=== PATIENT | female | born 1980 | race Caucasian/White ===

== ENCOUNTER 2017-04-05 14:03 | Outpatient (CLI) | payer OTHER ==
--- NOTE | 2017-04-05 14:59 | RAD ---
CERVICAL SPINE FOUR VIEWS: History: Follow up from surgery. FINDINGS: Patient has undergone anterior cervical fusion with placement of plate and screws at the C5-6 level. Markers are within confines of the disc space. Disc narrowing was noted at C2-3. IMPRESSION: Post-operative changes of the spine. POS: [facility]
== END 2017-04-05 14:04 | disposition home or self-care (01) ==
LOC: TBSIIMAG 14:03
PROVIDERS: ATTEND Surgery
DX: M54.2 Cervicalgia (principal); Z98.1 Arthrodesis status
CPT/HCPCS: 72040

== ENCOUNTER 2017-04-29 21:59 | Emergency (ER) | payer OTHER ==
--- NOTE | 2017-04-30 09:36 | CT ---
PRELIMINARY REPORT/[facility]/EMERGENCY AFTER-HOURS PROCEDURE: EXAM: CT Head Without Intravenous Contrast EXAM DATE/TIME: 04/30/2017 1:25 AM CLINICAL HISTORY: 37 years old, female; Signs and symptoms; Visual disturbance; Patient HX: Patient reports that she n oticed her vision going blurry in left eye, looked in mirror and noticed pupil was dilated. TECHNIQUE: Axial computed tomography images of the head/brain without intravenous contrast. COMPARISON: No relevant prior studies available. FINDINGS: Brain: Unremarkable. No hemorrhage. No significant white matter disease. No edema. Ventricles: Unremarkable. No ventriculomegaly. Bones/joints: Unremarkable. No acute fracture. Soft tissues: Unremarkable. Sinuses: Unremarkable as visualized. No acute sinusitis. Mastoid air cells: Unremarkable as visualized. No mastoid effusion. IMPRESSION: No acute intracranial abnormality. Thank you for allowing us to participate in the care of your patient. Dictated and Authenticated by: Chriss Butterfield MD 04/30/2017 1:46 AM Central Time ([place] \[place]\ [place]) FINAL REPORT CT BRAIN WITHOUT CONTRAST: HISTORY: Blurry vision. Emergency exam. COMPARISON: None. FINDINGS/IMPRESSION: Findings and impression are concordant with the preliminary report. POS: [facility]
== END 2017-04-30 02:37 | disposition home or self-care (01) ==
LOC: ERS 21:59
DX: H57.02 Anisocoria (principal); E28.2 Polycystic ovarian syndrome; I10 Essential (primary) hypertension; G43.909 Migraine, unspecified, not intractable, without status migrainosus; F41.9 Anxiety disorder, unspecified; Z79.52 Long term (current) use of systemic steroids; Z79.899 Other long term (current) drug therapy
CPT/HCPCS: 70450

== ENCOUNTER 2019-10-15 14:16 | Outpatient (CLI) | payer BC ==
--- NOTE | 2019-10-15 15:48 | MRI ---
Exam: MRI cervical spine without contrast HISTORY: Cervical dystonia. Cervical disc displacement at C4-C5. History of cervical fusion.. COMPARISON: 12/14/2016 FINDINGS: Interval cervical fusion at C5-C6. Associated metallic susceptibly artifact. Stable straightening of cervical lordosis. Appropriate T1 marrow signal intensity of the cervical vertebra. Cervical spine vertebral body height is maintained. No fracture. No significant STIR hyperintensity to suggest verte bral body edema or ligamentous injury. Visualized brain parenchyma, cervicomedullary junction, cervical cord and the upper thoracic cord hav e a normal size and signal intensity. C2-C3: No significant central canal stenosis or significant neural foraminal narrowing. C3-C4: Central disc herniation. Mild central canal stenosis. Bilaterally, neural foramina are patent. C4-C5: No significant central canal stenosis or significant neural foraminal narrowing. C5-C6: Disc prosthesis. Associated metallic susceptibly artifact. No significant central canal stenos is or significant neural foraminal narrowing. C6-C7: No significant central canal stenosis or significant neural foraminal narrowing. C7-T1: Minimal right paracentral disc herniation, contacting the thecal sac. No significant central c anal stenosis or significant neural foraminal narrowing. IMPRESSION: 1. Interval C5-C6 fusion. 2. No significant central canal stenosis or significant neural foraminal narrowing throughout the cer vical spine. Transcribed Date/Time: 10/15/2019 5:45 PM
== END 2019-10-15 14:17 | disposition home or self-care (01) ==
LOC: SCSMRI 14:16
PROVIDERS: ATTEND Psychiatry & Neurology Neurology
DX: G24.3 Spasmodic torticollis (principal); M50.221 Other cervical disc displacement at C4-C5 level; Z98.1 Arthrodesis status
CPT/HCPCS: 72141

== ENCOUNTER 2020-06-11 16:22 | Inpatient (IN) | payer BC ==
[2020-06-11] MEDS ORDERED: Lorazepam 2 MG/ML VIAL ONE (16:46)
[2020-06-11] MEDS ORDERED: Morphine 4 MG/ML VIAL ONE ×2 (17:00→19:08)
--- NOTE | 2020-06-11 17:00 | RAD ---
EXAM: CHEST ONE VIEW HISTORY: Chest pain. COMPARISON: 02/16/2017 FINDINGS: Cardiac silhouette is magnified by projection but is stable in size. Mild increased interstitial dens ities are seen at each lung base which could be related to mild asymmetric pulmonary edema or infectious process. Calcified granuloma overlies the medial right midlung zone. No other interval tiara nge. IMPRESSION: Bibasilar interstitial densities which could be related to mild asymmetric pulmonary edema or infecti ous process.
[2020-06-11 17:18] LABS: #Basophils 0.1 thou/uL (0.0-0.2); #Eosinphils 0.1 thou/uL (0.0-0.7); #Lymphocytes 5.9 thou/uL (1.20-3.40); #Monocytes 0.6 thou/uL (0.11-0.59); #Neutrophils 7.9 thou/uL (1.40-6.50); %Basophils 0.9 % (0.0-1.0); %Eosinophils 0.4 % (0.0-10.0); %Lymphocytes 40.5 % (21.0-51.0); %Monocytes 4.3 % (0.0-10.0); %Neutrophils 53.8 % (42.0-75.0); ALT (SGPT) 32 U/L (8-55); AST (SGOT) 28 U/L (5-34); Albumin 4.3 g/dL (3.5-5.0); Alkaline Phosphatase 178 U/L (40-110); Anion Gap 19 mmol/L (10-20); BUN (Urea Nitrogen) 12 mg/dL (7.0-18.7); Bilirubin, Total 0.2 mg/dL (0.2-1.2); Calc. Creatinine Clearance 0 mL/min (70-130); Calcium 9.6 mg/dL (7.8-10.44); Carbon Dioxide 20 mmol/L (22-29); Chloride 101 mmol/L (98-107); Globulin 3.5 g/dL (2.4-3.5); Glucose 360 mg/dL (70-105); Hemoglobin 12.7 g/dL (12.0-16.0); Mean Corpuscular HGB CONC 32.2 g/dL (32.0-36.0); Mean Corpuscular Hemoglobin 27.7 pg (27.0-31.0); Platelet Count 484 thou/uL (130-400); Potassium 4.4 mmol/L (3.5-5.1); Protein, Total 7.8 g/dL (6.0-8.3); RBC Distribution Width 12.8 % (11.5-14.5); Red Blood Cell (RBC) Count 4.59 mill/uL (4.20-5.40); Sodium 136 mmol/L (136-145); White Blood Cell (WBC) Count 14.6 thou/uL (4.8-10.8)
[2020-06-11] MEDS ORDERED: Ketorolac Tromethamine 30 MG/ML VIAL ONE (17:51)
[2020-06-11 18:54] LABS: Pregnancy Test - Urine (BHCG) Negative (Negative)
[2020-06-11 18:55] LABS: Pregu Control Background? CLEAR/WHITE (CLR/WHITE); Pregu Control Bar Appear? YES (CONTROL BAR); Specific Gravity 1.043 (1.002-1.036)
[2020-06-11] MEDS ORDERED: Promethazine HCl 25 MG/ML VIAL ONE (21:55)
[2020-06-11 22:31] LABS: CKMB 7.3 ng/mL (0-6.6)
[2020-06-11] MEDS ORDERED: Enoxaparin Sodium 100 MG/ML SYRINGE ONE (22:40)
[2020-06-12] MEDS ORDERED: Ondansetron PF 4 MG/2 ML Vial ONE (00:01)
[2020-06-12] MEDS ORDERED: Promethazine HCl 25 MG/ML VIAL ONE ×3 (00:31→15:35)
[2020-06-12] MEDS ORDERED: Ondansetron ODT 4 MG TAB SL PRN (01:30)
[2020-06-12] MEDS ORDERED: Ondansetron PF 4 MG/2 ML Vial IVP PRN (01:30)
[2020-06-12] MEDS ORDERED: Morphine 2 MG/ML VIAL ONE ×4 (02:04→14:38)
[2020-06-12] MEDS ORDERED: Nitroglycerin 2% Ointment 1 INCH/1 GM Packet ONE (02:25)
[2020-06-12] MEDS: Nitroglycerin 2% Ointment 1 INCH/1 GM Packet TOP SCH ×3 (02:31→17:33)
[2020-06-12] MEDS: Morphine 2 MG/ML VIAL SLOW IVP PRN (05:22)
[2020-06-12 05:35] LABS: Troponin I 7.282 ng/mL (< 0.028)
[2020-06-12 06:23] LABS: SARS-CoV-2 MS2 Positive; SARS-CoV-2 N Gene Negative; SARS-CoV-2 S Gene Negative; SARS-CoV-2 by NAA Not Detected (NotDetected); SARS-CoV-2 orf1ab Negative
[2020-06-12] MEDS ORDERED: Morphine 4 MG/ML VIAL ONE (07:46)
[2020-06-12] MEDS ORDERED: Nitroglycerin 50 MG/250 ML BOT 250 ML ONE (08:10)
[2020-06-12] MEDS ORDERED: methylPREDNISolone Sod Succ/PF 125 MG/2 ML VIAL ONE (08:21)
[2020-06-12] MEDS ORDERED: diphenhydrAMINE 50 MG/ML VIAL ONE (08:21)
[2020-06-12] MEDS ORDERED: Lorazepam 2 MG/ML VIAL ONE (08:29)
[2020-06-12] MEDS ORDERED: Famotidine/PF 20 mg/2ml Vial ONE (08:39)
--- NOTE | 2020-06-12 09:11 | CON ---
DATE OF CONSULTATION: HISTORY OF PRESENT ILLNESS: The patient is a 40-year-old woman with no known history of heart disease, who presents for evaluation of chest discomfort. The patient reports several months ago, she developed midsternal chest discomfort. She went to the [facility] Emergency Room. She was admitted to the hospital. She underwent an apparent CT coronary angiography, which apparently revealed no significant coronary artery disease. The patient states she was doing well until yesterday when she developed recurrent midsternal chest discomfort. The discomfort radiated down into both her arms. The discomfort resolved. The patient states the chest pain resolved until this morning when she developed recurrent pain. PAST MEDICAL HISTORY: 1. Cervical dystonia. 2. Multiple allergies. 3. Anxiety disorder. PAST SURGICAL HISTORY: Hysterectomy and appendectomy. SOCIAL HISTORY: Nonsmoker. ALLERGIES: AMITRIPTYLINE, SHELLFISH,CODEINE, TRAMADOL, TAMIFLU, ELAVIL, STATIN THERAPY. PHYSICAL EXAMINATION: GENERAL: This is an obese woman, in acute distress with a blood pressure of 150/70. NECK: Showed no jugular venous distention. LUNGS: Clear to auscultation. HEART: Regular rate and rhythm. Normal S1, S2. ABDOMEN: Distended. EXTREMITIES: Showed no edema. VASCULAR: Radial pulses 2+. LABORATORY DATA: Sodium 136, potassium 4.4, chloride 101, bicarbonate 20, BUN 12, creatinine 0.85, glucose is 360. Her troponin was 7.8. BNP is less than 10. White blood cell count 14.6, hemoglobin 12.7, hematocrit 39.5, and platelets are 484. IMAGING STUDIES: EKG normal sinus rhythm with Q-waves suggestive of previous inferior infarct. IMPRESSION AND PLAN: Myocardial infarction. This patient has suffered a non-Q-wave myocardial infarction. She continues to have chest discomfort. The patient has a severe iodine allergy. She will be emergently medicated. I have recommended proceeding with cardiac catheterization. The risks involved in the procedure including UT, bleeding, stroke, cardiac arrhythmia, and cardiac have been explained to the patient. The patient understands these risks and wished to proceed. TIME SPENT: 1 hour and 30 minutes. Job ID: [id number] MTDD
[2020-06-12] MEDS ORDERED: Lorazepam 2 MG/ML VIAL SLOW IVP SCH (09:30)
[2020-06-12] MEDS ORDERED: Famotidine/PF 20 mg/2ml Vial SLOW IVP SCH (09:30)
[2020-06-12] MEDS ORDERED: diphenhydrAMINE 50 MG/ML VIAL IVP SCH ×2 (09:30→14:00)
[2020-06-12] MEDS ORDERED: methylPREDNISolone Sod Succ/PF 125 MG/2 ML VIAL IVP SCH ×2 (09:30→14:00)
[2020-06-12] MEDS ORDERED: Nitroglycerin 50 MG/250 ML BOT 250 ML IVPB SCH (09:30)
[2020-06-12 10:56] VITALS: BMI 40.7
[2020-06-12] MEDS: Metoprolol Tartrate 25 MG TAB PO SCH ×2 (11:06→21:13)
[2020-06-12] MEDS: Aspirin 81 mg Enteric Coated Tablet PO SCH (11:35)
[2020-06-12] MEDS: Morphine 4 MG/ML VIAL SLOW IVP PRN ×4 (11:55→21:45)
[2020-06-12] MEDS ORDERED: Iopamidol 370 76% 100 ML VIAL ONE (13:34)
[2020-06-12] MEDS ORDERED: Iopamidol 370 76% 50 ML VIAL FS ONE (13:34)
[2020-06-12] MEDS ORDERED: Heparin 10,000 UNITS/ 10 ML VIAL ONE (15:16)
[2020-06-12] MEDS ORDERED: Aggrastat 12.5 MG/250 ML 250 ML ONE (15:42)
--- NOTE | 2020-06-12 15:49 | PDOC.HHP ---
Hospitalist HPI - History of Present Illness CHEST PAIN History of Present Illness: The patient is a 40-year-old female with past medical history of anxiety and cervical dystonia presented to the hospital with complains of chest pain. Patient stated that her symptoms started yesterday with left-sided upper back pain that subsided spontaneously. Subsequently, she experienced central chest pain radiating to both her shoulders and neck which prompted her to present to the ER. In the ED the initial troponin was negative, however, subsequent troponins were elevated. Hospitalist ROS - Review of Systems All other systems reviewed; all pertinent +/- noted in HPI/Subj - Medication Medications: Active Medications Generic Name Dose Route Start Last Admin Trade Name Freq PRN Reason Stop Dose Admin Aspirin 81 mg 06/12/20 09:00 06/12/20 11:35 Aspirin 81 Mg Enteric Coated Tablet PO 81 mg DAILY DOROTHY Administration Diphenhydramine HCl 25 mg 06/12/20 14:00 06/12/20 13:37 Diphenhydramine 50 Mg/Ml Vial IVP 06/12/20 16:00 25 mg 1400 DOROTHY Administration Methylprednisolone Sodium Succinate 125 mg 06/12/20 14:00 06/12/20 13:37 Methylprednisolone Sod Succ/Pf 125 Mg/2 Ml Vial IVP 06/12/20 16:00 125 mg 1400 DOROTHY Administration Metoprolol Tartrate 25 mg 06/12/20 09:00 06/12/20 11:06 Metoprolol Tartrate 25 Mg Tab PO Not Given BID DOROTHY Morphine Sulfate 2 mg 06/12/20 01:17 06/12/20 05:22 Morphine 2 Mg/Ml Vial SLOW IVP 2 mg Q2H PRN Administration Pain Morphine Sulfate 4 mg 06/12/20 07:07 06/12/20 11:55 Morphine 4 Mg/Ml Vial SLOW IVP 4 mg Q3H PRN Administration Moderate to Severe Pain (6-10) Nitroglycerin 1 inch 06/12/20 03:00 06/12/20 11:10 Nitroglycerin 2% Ointment 1 Inch/1 Gm Packet TOP Not Given 0300,0900,1500,2100 DOROTHY Sodium Chloride 10 ml 06/12/20 09:00 06/12/20 11:14 Flush - Normal Saline 10 Ml Syringe IVF 10 ml Q12HR DOROTHY Administration Hospitalist History - Past Medical History Cardiac: reports: HTN ARTIST SCIENTIFIC: reports: Migraine Other Medical History: Cervical dystonia - Past Surgical History Past Surgical History: reports: Appendectomy - Family History Family History: reports: no pertinent history - Social History Smoking Status: Never smoker Alcohol: reports: None Drugs: reports: none - Exam General Appearance: awake alert ENT: normocephalic atraumatic Neck: supple, no JVD Heart: RRR Respiratory: normal chest expansion, no tachypnea Gastrointestinal: soft Extremities: no cyanosis, no clubbing Neurological: cranial nerve grossly intact Hospitalist Results - Labs Result Diagrams: 06/11/20 16:51 06/11/20 16:51 Lab results: WBC 14.6 thou/uL (4.8-10.8) H 06/11/20 16:51 Hgb 12.7 g/dL (12.0-16.0) 06/11/20 16:51 Hct 39.5 % (36.0-47.0) 06/11/20 16:51 MCV 86.0 fL (78.0-98.0) 06/11/20 16:51 Plt Count 484 thou/uL (130-400) H 06/11/20 16:51 Neutrophils % 53.8 % (42.0-75.0) 06/11/20 16:51 Sodium 136 mmol/L (136-145) 06/11/20 16:51 Potassium 4.4 mmol/L (3.5-5.1) 06/11/20 16:51 Chloride 101 mmol/L (98-107) 06/11/20 16:51 Carbon Dioxide 20 mmol/L (22-29) L 06/11/20 16:51 BUN 12 mg/dL (7.0-18.7) 06/11/20 16:51 Creatinine 0.85 mg/dL (0.6-1.1) 06/11/20 16:51 Glucose 360 mg/dL (70-105) H 06/11/20 16:51 Calcium 9.6 mg/dL (7.8-10.44) 06/11/20 16:51 Total Bilirubin 0.2 mg/dL (0.2-1.2) 06/11/20 16:51 AST 28 U/L (5-34) 06/11/20 16:51 ALT 32 U/L (8-55) 06/11/20 16:51 Alkaline Phosphatase 178 U/L (40-110) H 06/11/20 16:51 CK-MB (CK-2) 7.3 ng/mL (0-6.6) H* 06/11/20 21:31 Troponin I 7.282 ng/mL (< 0.028) H* 06/12/20 04:48 B-Natriuretic Peptide Less than 10.0 pg/mL (0-100) 06/11/20 16:51 Serum Total Protein 7.8 g/dL (6.0-8.3) 06/11/20 16:51 Albumin 4.3 g/dL (3.5-5.0) 06/11/20 16:51 Hospitalist H&P A/P - Problem (1) NSTEMI (non-ST elevated myocardial infarction) Code(s): I21.4 - NON-ST ELEVATION (NSTEMI) MYOCARDIAL INFARCTION Status: Acute (2) Anxiety Code(s): F41.9 - ANXIETY DISORDER, UNSPECIFIED Status: Acute (3) HTN (hypertension) Code(s): I10 - ESSENTIAL (PRIMARY) HYPERTENSION Status: Acute - Plan Plan: The patient will be admitted to the hospital. Start aspirin, atorvastatin, metoprolol, morphine, and nitroglycerin. Trend troponins. Check echocardiogram. Cardiology service consulted. Heart score of 5 correlating with risk of an VAUGHN of 12 to 16%.
[2020-06-12] MEDS ORDERED: TICAGRELOR 90 MG TABLET ONE (15:59)
[2020-06-12] MEDS ORDERED: Aggrastat 12.5 MG/250 ML 250 ML IVPB SCH (16:15)
[2020-06-12] MEDS ORDERED: Sodium Chloride 0.9% 1,000 ML IV SCH (16:15)
--- NOTE | 2020-06-12 16:17 | EKG ---
Test Reason : Blood Pressure : / mmHG Vent. Rate : 091 BPM Atrial Rate : 091 BPM P-R Int : 190 ms QRS Dur : 106 ms QT Int : 396 ms P-R-T Axes : 048 013 072 degrees QTc Int : 487 ms Normal sinus rhythm Inferior-posterior infarct (cited on or before 11-JUN-2020) Abnormal ECG When compared with ECG of 12-JUN-2020 05:43, (Unconfirmed) No significant change was found Confirmed by DR. Carla PARSON ([id number]) on 06/12/2020 4:16:54 PM Referred By: NATY Burdick Confirmed By:DR. Carla PARSON
[2020-06-12] MEDS: TICAGRELOR 90 MG TABLET PO SCH (21:12)
[2020-06-12 21:29] LABS: Troponin I 99.389 ng/mL (< 0.028)
[2020-06-12] MEDS: Promethazine HCl 25 MG/ML VIAL SLOW IVP PRN (23:07)
[2020-06-13 04:39] LABS: #Lymphocytes 3.9 thou/uL (1.20-3.40); #Monocytes 1.2 thou/uL (0.11-0.59); #Neutrophils 10.4 thou/uL (1.40-6.50); %Basophils 0.2 % (0.0-1.0); %Eosinophils 0.2 % (0.0-10.0); %Lymphocytes 25.1 % (21.0-51.0); %Monocytes 7.8 % (0.0-10.0); %Neutrophils 66.6 % (42.0-75.0); Hemoglobin 11.3 g/dL (12.0-16.0); Mean Corpuscular HGB CONC 32.8 g/dL (32.0-36.0); Mean Corpuscular Volume 85.3 fL (78.0-98.0); Mean Platelet Volume 6.6 fL (7.4-10.4); Platelet Count 381 thou/uL (130-400); RBC Distribution Width 12.9 % (11.5-14.5); Red Blood Cell (RBC) Count 4.03 mill/uL (4.20-5.40); White Blood Cell (WBC) Count 15.7 thou/uL (4.8-10.8)
[2020-06-13 04:41] LABS: ALT (SGPT) 43 U/L (8-55); AST (SGOT) 170 U/L (5-34); Albumin 3.5 g/dL (3.5-5.0); Alkaline Phosphatase 134 U/L (40-110); Anion Gap 16 mmol/L (10-20); BUN (Urea Nitrogen) 6 mg/dL (7.0-18.7); Bilirubin, Total 0.3 mg/dL (0.2-1.2); Calc. Creatinine Clearance 184 mL/min (70-130); Carbon Dioxide 21 mmol/L (22-29); Cardiac Risk 7.2 (Less than 4.5); Chloride 101 mmol/L (98-107); Cholesterol 279 mg/dl (< 200 Desired); Globulin 3.3 g/dL (2.4-3.5); Glucose 188 mg/dL (70-105); HDL Cholesterol 39 mg/dL (>60 Neg Risk); LDL Cholesterol, Calculated 179 mg/dL; Potassium 3.9 mmol/L (3.5-5.1); Protein, Total 6.8 g/dL (6.0-8.3); Sodium 134 mmol/L (136-145); Triglycerides 305 mg/dL (Less than 150)
[2020-06-13] MEDS: Morphine 4 MG/ML VIAL SLOW IVP PRN ×2 (05:04→09:35)
[2020-06-13] MEDS: Metoprolol Tartrate 25 MG TAB PO SCH ×3 (08:13→21:42)
[2020-06-13] MEDS: Aspirin 81 mg Enteric Coated Tablet PO SCH (08:16)
[2020-06-13] MEDS: TICAGRELOR 90 MG TABLET PO SCH ×2 (08:17→21:41)
[2020-06-13] MEDS: Promethazine HCl 25 MG/ML VIAL SLOW IVP PRN (08:43)
[2020-06-13] MEDS ORDERED: FLU VACC QS2020-21(6MOS UP)/PF 60 MCG/0.5 ML SYRINGE IM ONE (11:15)
[2020-06-13] MEDS: Morphine 2 MG/ML VIAL SLOW IVP PRN ×4 (12:25→23:41)
[2020-06-13] MEDS ORDERED: diphenhydrAMINE 50 MG/ML VIAL IVP SCH (12:30)
[2020-06-13] MEDS ORDERED: Promethazine 25 MG TAB PO PRN (19:43)
[2020-06-13] MEDS ORDERED: diphenhydrAMINE 12.5 MG/5 ML UDCUP PO PRN (19:43)
--- NOTE | 2020-06-13 19:45 | PDOC.HOSPP ---
- Subjective Encounter Date: 06/13/20 Encounter Time: 14:30 Subjective: Patient seen and examined for non-ST elevation RI. Denies any chest pain, palpitations or syncope. Nauseous - no vomiting. No fever or chills - Objective Vital Signs & Weight: Vital Signs (12 hours) Temp Pulse Pulse BP BP Pulse Ox Pulse Ox 06/13/20 19:00 98.8 F 06/13/20 17:00 98.7 F 06/13/20 12:58 102 H 100 122/82 113/84 97 06/13/20 12:00 98.1 F 06/13/20 08:00 98.5 F 93 L Pulse Ox 06/13/20 19:00 06/13/20 17:00 06/13/20 12:58 99 06/13/20 12:00 06/13/20 08:00 Weight Weight 222 lb 10.67 oz Most Recent Monitor Data Heart Rate from ECG 118 NIBP 154/100 NIBP BP-Mean 118 Respiration from ECG 19 SpO2 100 I&O: 06/12/20 06/13/20 06/14/20 06:59 06:59 06:59 Intake Total 1237.7 916 Output Total 1550 576 Balance -312.3 340 Result Diagrams: 06/13/20 03:27 06/13/20 03:27 EKG Reviewed by me: Yes (Sinus rhythm on telemetry) Hospitalist ROS - Review of Systems Respiratory: denies: cough, dry, shortness of breath, hemoptysis, SOB with excertion, pleuritic pain, sputum, wheezing, other Cardiovascular: denies: chest pain, palpitations, orthopnea, paroxysmal noc. dyspnea, edema, light headedness, other - Medication Medications: Active Medications Generic Name Dose Route Start Last Admin Trade Name Freq PRN Reason Stop Dose Admin Aspirin 81 mg 06/12/20 09:00 06/13/20 08:16 Aspirin 81 Mg Enteric Coated Tablet PO 81 mg DAILY DOROTHY Administration Metoprolol Tartrate 25 mg 06/12/20 09:00 06/13/20 09:50 Metoprolol Tartrate 25 Mg Tab PO 25 mg BID DOROTHY Administration Morphine Sulfate 2 mg 06/12/20 01:17 06/13/20 16:27 Morphine 2 Mg/Ml Vial SLOW IVP 2 mg Q2H PRN Administration Pain Sodium Chloride 10 ml 06/12/20 09:00 12/05/20 08:18 Flush - Normal Saline 10 Ml Syringe IVF 10 ml Q12HR DOROTHY Administration Ticagrelor 90 mg 06/12/20 21:00 06/13/20 08:17 Ticagrelor 90 Mg Tablet PO 90 mg BID DOROTHY Administration - Exam General - other findings: patient in distress due to pain Heart: RRR, no gallops Respiratory: no wheezes, no ronchi Gastrointestinal: soft, non-distended, no guarding, no rigidity, tender to palpation ( in right lower quadrant) Extremities: no cyanosis, no clubbing Neurological: no new deficit Psychiatric: A&O x 3 Hosp A/P - Plan DVT proph w/SCDs Non-ST elevation RI Coronary artery disease status post stent placement in the first obtuse marginal this admission Morbid obesity with a BMI of 40.7 Anxiety Hypertension Chronic pain syndrome History of migraines Plan: Continue dual antiplatelet therapy. Continue beta-blockers. Patient is allergic to statins. Morphine as needed for chest pain. Patient is currently on Phenergan as needed for nausea. She states that Zofran does not work for nausea. IV fluids discontinued. Resume home medications including Soma and prednisone. A.m. labs.
[2020-06-13] MEDS ORDERED: Fioricet 325/50/40 mg Tablet PO PRN (19:49)
[2020-06-13] MEDS ORDERED: Non-Formulary Item 1 EACH (Lansoprazole [Prevacid] 15 MG Cap) PO SCH (21:00)
[2020-06-13] MEDS ORDERED: Acetaminophen 500 MG TAB PO SCH (21:45)
[2020-06-13] MEDS ORDERED: ALPRAZolam 0.25 MG TAB PO SCH (22:00)
[2020-06-14 04:18] LABS: #Basophils 0.1 thou/uL (0.0-0.2); #Eosinphils 0.1 thou/uL (0.0-0.7); #Lymphocytes 5.4 thou/uL (1.20-3.40); #Neutrophils 6.3 thou/uL (1.40-6.50); %Basophils 0.6 % (0.0-1.0); %Eosinophils 0.6 % (0.0-10.0); %Lymphocytes 41.9 % (21.0-51.0); %Monocytes 7.5 % (0.0-10.0); %Neutrophils 49.3 % (42.0-75.0); Hemoglobin 11.6 g/dL (12.0-16.0); Mean Corpuscular HGB CONC 32.3 g/dL (32.0-36.0); Mean Corpuscular Hemoglobin 27.7 pg (27.0-31.0); Mean Corpuscular Volume 85.7 fL (78.0-98.0); Mean Platelet Volume 6.5 fL (7.4-10.4); Platelet Count 388 thou/uL (130-400); RBC Distribution Width 13.1 % (11.5-14.5); Red Blood Cell (RBC) Count 4.21 mill/uL (4.20-5.40); White Blood Cell (WBC) Count 12.8 thou/uL (4.8-10.8)
[2020-06-14 04:52] LABS: Anion Gap 15 mmol/L (10-20); BUN (Urea Nitrogen) 9 mg/dL (7.0-18.7); Calc. Creatinine Clearance 174 mL/min (70-130); Calcium 8.5 mg/dL (7.8-10.44); Carbon Dioxide 23 mmol/L (22-29); Chloride 102 mmol/L (98-107); Glucose 176 mg/dL (70-105); Magnesium 1.8 mg/dL (1.6-2.6); Phosphorus 3.8 mg/dL (2.3-4.7); Potassium 3.2 mmol/L (3.5-5.1); Sodium 137 mmol/L (136-145)
[2020-06-14] MEDS: Acetaminophen 325 MG TAB PO PRN ×2 (05:13→10:36)
[2020-06-14] MEDS: diphenhydrAMINE 25 MG CAP PO PRN (05:14)
[2020-06-14] MEDS: Cholecalciferol 1,000 UNITS (25 MCG) TAB PO SCH (08:56)
[2020-06-14] MEDS: Metoprolol Tartrate 25 MG TAB PO SCH (08:57)
[2020-06-14] MEDS: Aspirin 81 mg Enteric Coated Tablet PO SCH (08:57)
[2020-06-14] MEDS: ALPRAZolam 0.25 MG TAB PO SCH ×2 (08:57→22:55)
[2020-06-14] MEDS: TICAGRELOR 90 MG TABLET PO SCH ×2 (08:58→20:24)
[2020-06-14] MEDS ORDERED: Magnesium Sulfate 2 GM in Sodium Chloride 0.9% 100 ML IVPB SCH (09:15)
[2020-06-14] MEDS ORDERED: Magnesium 2 GM/50 ML 2 GM in Premix Bag 1 BAG IVPB SCH (09:15)
[2020-06-14] MEDS ORDERED: Potassium Chloride 20 MEQ TAB PO SCH (09:15)
[2020-06-14] MEDS: predniSONE 1 MG TAB PO SCH (10:48)
[2020-06-14 11:25] VITALS: BP 151/91
[2020-06-14] MEDS ORDERED: Icosapent Ethyl 1 GM CAPSULE PO SCH (12:15)
[2020-06-14] MEDS: Icosapent Ethyl 1 GM CAPSULE PO SCH ×3 (12:53→20:27)
[2020-06-14] MEDS: Carisoprodol 350 MG Tablet PO PRN ×2 (14:58→20:26)
[2020-06-14] MEDS: BUTALBITAL ACETAMINOPHEN PO PRN ×2 (14:59→20:25)
[2020-06-14 18:27] VITALS: TEMP 98.1
[2020-06-14] MEDS: Potassium Chloride 20 MEQ TAB PO SCH (18:32)
--- NOTE | 2020-06-14 19:31 | PDOC.HOSPP ---
- Subjective Encounter Date: 06/14/20 Encounter Time: 09:45 Subjective: Patient seen and examined for non-ST elevation FL. Denies new chest pain. No nausea or vomiting. No palpitations or syncope reported. - Objective Vital Signs & Weight: Vital Signs (12 hours) Temp Pulse Pulse BP BP Pulse Ox Pulse Ox 06/14/20 16:00 98.1 F 06/14/20 13:00 97.9 F 06/14/20 10:26 115 H 107 H 151/91 H 125/80 97 06/14/20 08:00 97.7 F 98 06/14/20 07:47 96 Pulse Ox 06/14/20 16:00 06/14/20 13:00 06/14/20 10:26 97 06/14/20 08:00 06/14/20 07:47 Weight Weight 222 lb 10.67 oz Most Recent Monitor Data Heart Rate from ECG 114 NIBP 109/81 NIBP BP-Mean 90 Respiration from ECG 15 SpO2 96 I&O: 06/13/20 06/14/20 06/15/20 06:59 06:59 06:59 Intake Total 1237.7 1473 1010 Output Total 1550 576 851 Balance -312.3 897 159 Result Diagrams: 06/14/20 03:46 06/14/20 03:46 Additional Labs: Abnormal Lab Results - Last 48 hrs 06/12/20 20:27: Troponin I 99.389 H* 06/13/20 03:27: Sodium 134 L, Carbon Dioxide 21 L, BUN 6 L, AST 170 H, Alkaline Phosphatase 134 H, Albumin/Globulin Ratio 1.1 L, Triglycerides 305 H, Cholesterol 279 H 06/13/20 03:27: WBC 15.7 H, RBC 4.03 L, Hgb 11.3 L, Hct 34.4 L, MPV 6.6 L, Neutrophils # 10.4 H, Lymphocytes # 3.9 H, Monocytes # 1.2 H 06/14/20 03:46: Potassium 3.2 L 06/14/20 03:46: WBC 12.8 H, Hgb 11.6 L, MPV 6.5 L, Lymphocytes # 5.4 H, Monocytes # 1.0 H EKG Reviewed by me: Yes (Sinus rhythm on telemetry) Hospitalist ROS - Review of Systems Respiratory: denies: cough, dry, shortness of breath, hemoptysis, SOB with excertion, pleuritic pain, sputum, wheezing, other Cardiovascular: denies: chest pain, palpitations, orthopnea, paroxysmal noc. dyspnea, edema, light headedness, other - Medication Medications: Active Medications Generic Name Dose Route Start Last Admin Trade Name Freq PRN Reason Stop Dose Admin Acetaminophen 650 mg 06/13/20 21:09 06/14/20 10:36 Acetaminophen 325 Mg Tab PO 650 mg Q4H PRN Administration Headache/Fever or Pain Alprazolam 0.25 mg 06/14/20 09:00 06/14/20 08:57 Alprazolam 0.25 Mg Tab PO 0.25 mg BID DOROTHY Administration Aspirin 81 mg 06/12/20 09:00 06/14/20 08:57 Aspirin 81 Mg Enteric Coated Tablet PO 81 mg DAILY DOROTHY Administration Cholecalciferol 4,000 units 06/14/20 09:00 06/14/20 08:56 Cholecalciferol 1,000 Units (25 Mcg) Tab PO 4,000 units DAILY DOROTHY Administration Diphenhydramine HCl 25 mg 06/13/20 19:42 06/14/20 05:14 Diphenhydramine 25 Mg Cap PO 25 mg Q6H PRN Administration Itching Miscellaneous Medication 2 gm 06/13/20 21:00 06/14/20 12:53 Icosapent Ethyl 1 Gm Capsule PO Not Given BID [facility] Morphine Sulfate 2 mg 06/12/20 01:17 06/13/20 23:41 Morphine 2 Mg/Ml Vial SLOW IVP 2 mg Q2H PRN Administration Pain Pantoprazole Sodium 40 mg 06/14/20 09:00 06/14/20 08:57 Pantoprazole 40 Mg Tab PO 40 mg DAILY DOROTHY Administration Carisoprodol 350 Mg 1 each 06/14/20 14:44 06/14/20 14:58 Tablet PO 1 each BID PRN Administration Pain Butalbital- 1 each 06/14/20 14:50 06/14/20 14:59 Acetaminophen 50/325 PO 1 each Mg DAILY PRN Administration .HEADACHE Potassium Chloride 20 meq 06/14/20 17:00 06/14/20 18:32 Potassium Chloride 20 Meq Tab PO 06/15/20 08:01 20 meq BID-WM DOROTHY Administration Prednisone 6 mg 06/14/20 09:00 06/14/20 10:48 Prednisone 1 Mg Tab PO 6 mg DAILY DOROTHY Administration Promethazine HCl 25 mg 06/13/20 19:43 06/13/20 21:42 Promethazine 25 Mg Tab PO 25 mg Q4H PRN Administration Nausea Sodium Chloride 10 ml 06/12/20 09:00 06/14/20 08:58 Flush - Normal Saline 10 Ml Syringe IVF 10 ml Q12HR DOROTHY Administration Ticagrelor 90 mg 06/12/20 21:00 06/14/20 08:58 Ticagrelor 90 Mg Tablet PO 90 mg BID DOROTHY Administration - Exam General Appearance: NAD Neck: supple, no JVD Heart: RRR, no gallops Respiratory: no wheezes, no ronchi Gastrointestinal: soft, normal bowel sounds Extremities: no cyanosis Neurological: no new deficit Hosp A/P - Plan DVT proph w/SCDs Non-ST elevation FL Coronary artery disease S/p stent placement in the first obtuse marginal this admission Morbid obesity with a BMI of 40.7 Anxiety Hypokalemia/hypomagnesemia Hypertension Chronic pain syndrome History of migraines Statin allergy Plan: Replace potassium and magnesium. Continue aspirin with Brilinta. Recheck labs in a.m. Metoprolol tartrate changed to Toprol-XL. Continue PPIs. Continue Vascepa. Continue other chronic home medications. Transfer to telemetry
[2020-06-15] MEDS: diphenhydrAMINE 25 MG CAP PO PRN (02:55)
[2020-06-15 04:08] LABS: #Basophils 0.1 thou/uL (0.0-0.2); #Eosinphils 0.1 thou/uL (0.0-0.7); #Lymphocytes 5.9 thou/uL (1.20-3.40); #Monocytes 0.9 thou/uL (0.11-0.59); #Neutrophils 6.8 thou/uL (1.40-6.50); %Basophils 0.6 % (0.0-1.0); %Eosinophils 0.8 % (0.0-10.0); %Lymphocytes 42.5 % (21.0-51.0); %Monocytes 6.6 % (0.0-10.0); %Neutrophils 49.5 % (42.0-75.0); Hemoglobin 10.6 g/dL (12.0-16.0); Mean Corpuscular HGB CONC 33.2 g/dL (32.0-36.0); Mean Corpuscular Hemoglobin 28.4 pg (27.0-31.0); Mean Corpuscular Volume 85.5 fL (78.0-98.0); Mean Platelet Volume 6.7 fL (7.4-10.4); Platelet Count 378 thou/uL (130-400); Red Blood Cell (RBC) Count 3.75 mill/uL (4.20-5.40); White Blood Cell (WBC) Count 13.8 thou/uL (4.8-10.8)
[2020-06-15 04:30] LABS: Anion Gap 14 mmol/L (10-20); BUN (Urea Nitrogen) 9 mg/dL (7.0-18.7); Calc. Creatinine Clearance 166 mL/min (70-130); Calcium 8.7 mg/dL (7.8-10.44); Carbon Dioxide 22 mmol/L (22-29); Chloride 103 mmol/L (98-107); Glucose 182 mg/dL (70-105); Magnesium 1.9 mg/dL (1.6-2.6); Potassium 3.4 mmol/L (3.5-5.1); Sodium 136 mmol/L (136-145)
[2020-06-15] MEDS ORDERED: Potassium Chloride 20 MEQ TAB PO SCH (08:00)
[2020-06-15] MEDS: Potassium Chloride 20 MEQ TAB PO SCH (08:47)
[2020-06-15] MEDS: Aspirin 81 mg Enteric Coated Tablet PO SCH (08:48)
[2020-06-15] MEDS: Cholecalciferol 1,000 UNITS (25 MCG) TAB PO SCH (08:49)
[2020-06-15] MEDS: ALPRAZolam 0.25 MG TAB PO SCH (08:49)
[2020-06-15] MEDS: TICAGRELOR 90 MG TABLET PO SCH (08:52)
[2020-06-15] MEDS: predniSONE 1 MG TAB PO SCH (08:52)
[2020-06-15] MEDS: Icosapent Ethyl 1 GM CAPSULE PO SCH (08:55)
[2020-06-15] MEDS ORDERED: Magnesium 2 GM/50 ML 2 GM in Premix Bag 1 BAG IVPB SCH (09:00)
[2020-06-15 09:44] LABS: ALT (SGPT) 26 U/L (8-55); AST (SGOT) 30 U/L (5-34); Albumin 3.4 g/dL (3.5-5.0); Alkaline Phosphatase 110 U/L (40-110); Bilirubin, Direct 0.1 mg/dL (0.1-0.3); Bilirubin, Total 0.4 mg/dL (0.2-1.2); Protein, Total 6.6 g/dL (6.0-8.3)
--- NOTE | 2020-06-15 16:19 | EKG ---
Test Reason : Blood Pressure : / mmHG Vent. Rate : 099 BPM Atrial Rate : 099 BPM P-R Int : 186 ms QRS Dur : 106 ms QT Int : 384 ms P-R-T Axes : 045 026 064 degrees QTc Int : 492 ms Normal sinus rhythm Inferior-posterior infarct (cited on or before 11-JUN-2020) Abnormal ECG When compared with ECG of 12-JUN-2020 11:09, No significant change was found Confirmed by DR. Carla PARSON (3) on 06/15/2020 4:18:46 PM Referred By: REYMUNDO Confirmed By:DR. Carla PARSON
--- NOTE | 2020-06-15 16:31 | EKG ---
Test Reason : ROUTINE Blood Pressure : / mmHG Vent. Rate : 084 BPM Atrial Rate : 084 BPM P-R Int : 194 ms QRS Dur : 106 ms QT Int : 384 ms P-R-T Axes : 039 041 065 degrees QTc Int : 453 ms Normal sinus rhythm Nonspecific T wave abnormality Abnormal ECG When compared with ECG of 12-JUN-2020 16:18, (Unconfirmed) Criteria for Inferior-posterior infarct are no longer Present Nonspecific T wave abnormality now evident in Inferior leads Confirmed by DR. Carla PARSON (3) on 06/15/2020 4:31:15 PM Referred By: MARIANA Confirmed By:DR. Carla PARSON
--- NOTE | 2020-06-15 16:33 | EKG ---
Test Reason : CHEST PAIN Blood Pressure : / mmHG Vent. Rate : 096 BPM Atrial Rate : 096 BPM P-R Int : 200 ms QRS Dur : 106 ms QT Int : 378 ms P-R-T Axes : 024 024 075 degrees QTc Int : 477 ms Normal sinus rhythm Nonspecific ST and T wave abnormality Abnormal ECG No previous ECGs available Confirmed by DR. Carla PARSON ([id number]) on 06/15/2020 4:33:02 PM Referred By: MARIANA Confirmed By:DR. Carla PARSON
--- NOTE | 2020-06-15 17:37 | PDOC.DS.DS ---
Provider - Provider Date of Admission: 06/11/20 22:31 Date of Discharge: 06/15/20 Admitting Provider: Prince Mcgill DO Consultations: Cardiology Primary Care Physician: Norma Prescott MD Course - Hospital Course Hospital Course: Patient is a 40-year-old female with morbid obesity and hypertension presented to the emergency room on 06/11 with chest discomfort radiating to her upper back. Her troponins in the emergency room was 7.2. Please refer to the history and physical for further details. The patient was admitted to the intensive care unit with a diagnosis of non-ST elevation HI. She was started on antiplatelet along with anticoagulants and nitroglycerin/IV morphine. Patient was evaluated by cardiology. She underwent cardiac catheterization with stent placement to the first obtuse marginal coronary artery. Post-cath patient was monitored in the intensive care unit. Echocardiogram showed ejection fraction 50 to 55% with diastolic dysfunction, mild mitral regurgitation and mild tricuspid regurgitation. She has been starte d on dual antiplatelet therapy. Chest pain has resolved. She has been extensively counseled on lifestyle modification. Patient has been started on Toprol-XL along with Vascepa. Patient is allergic to iodine and statins. Final diagnosis: Non-ST elevation HI Coronary artery disease S/p stent placement in the first obtuse marginal this admission Morbid obesity with a BMI of 40.7 Anxiety Hypokalemia/hypomagnesemia Hypertension Chronic pain syndrome History of migraines Statin/iodine allergy Diastolic dysfunction - Labs Lab Results: 06/15/20 03:34 06/15/20 03:34 Abnormal Lab Results - Last 48 hrs 06/14/20 03:46: Potassium 3.2 L 06/14/20 03:46: WBC 12.8 H, Hgb 11.6 L, MPV 6.5 L, Lymphocytes # 5.4 H, Monocyte s # 1.0 H 06/15/20 03:34: Potassium 3.4 L 06/15/20 03:34: WBC 13.8 H, RBC 3.75 L, Hgb 10.6 L, Hct 32.0 L, MPV 6.7 L, Neutrophils # 6.8 H, Lymphocytes # 5.9 H, Monocytes # 0.9 H 06/15/20 03:34: Albumin 3.4 L - Physical Exam Vitals: Vital Signs (12 hours) Pulse Ox 06/15/20 08:00 100 Weight Weight 222 lb 10.67 oz Most Recent Monitor Data Heart Rate from ECG 104 NIBP 125/102 NIBP BP-Mean 109 Respiration from ECG 22 SpO2 97 Physical Exam: The patient was seen and examined on the day of discharge. Plan - Discharge Medications Prescriptions: Nitroglycerin [Nitrostat] 0.4 mg PO Q5MIN PRN #25 tab PRN Reason: Chest Pain Ticagrelor [Brilinta] 90 mg PO BID #60 tab Aspirin [Ecotrin Low Strength] 81 mg PO DAILY #30 tab Potassium Chloride [K-Dur] 20 meq PO BID-WM #2 tab Metoprolol Succinate [Toprol XL] 50 mg PO DAILY #30 tab Icosapent Ethyl [Vascepa] 2 gm PO BID #120 capsule Home Medications: Medication Instructions Recorded Confirmed Type Butalbital/Acetaminophen 2 tab PO DAILY PRN 02/07/17 06/13/20 History [Acetaminophen/Butabital 325/50 mg] Carisoprodol 1 tab PO BID PRN 02/07/17 06/13/20 History Cholecalciferol (Vitamin D3) 4,000 unit PO DAILY 02/07/17 06/13/20 History [Vitamin D3] Diazepam 10 mg PO HS 02/07/17 06/13/20 History Lansoprazole [Prevacid] 15 mg PO QPM 02/07/17 06/13/20 History Norethindrone-E.Estradiol-Iron [Lo 1 tab I-DERMAL [id number] 02/07/17 06/13/20 History Loestrin Fe] predniSONE [Prednisone] 6 mg PO DAILY 02/07/17 06/13/20 History Aspirin [Ecotrin Low Strength] 81 mg PO DAILY #30 tab 06/15/20 Rx Icosapent Ethyl [Vascepa] 2 gm PO BID #120 capsule 06/15/20 Rx Metoprolol Succinate [Toprol XL] 50 mg PO DAILY #30 tab 06/15/20 Rx Nitroglycerin [Nitrostat] 0.4 mg PO Q5MIN PRN #25 tab 06/15/20 Rx Potassium Chloride [K-Dur] 20 meq PO BID-WM #2 tab 06/15/20 Rx Ticagrelor [Brilinta] 90 mg PO BID #60 tab 06/15/20 Rx Allergies: amitriptyline [From Elavil] Allergy (Verified 09/28/19 05:55) seizures oseltamivir [From Tamiflu] Allergy (Verified 09/28/19 05:55) shellfish derived Allergy (Verified 09/28/19 05:55) Smkgech-Pxn-Lft Reductase Inhibitor Allergy (Verified 09/28/19 05:55) tramadol Allergy (Verified 09/28/19 05:55) codeine Adverse Reaction (Verified 09/28/19 05:55) vomiting - Discharge Instructions Discharge Instructions:: BMP after 1 week - PCP to arrange/follow - Follow up Plan Referrals: Cardiac Rehab - [place] [Outside] - 7 Days (Your doctor has ordered outpatient cardiac rehab for you to begin within 1-2 weeks after you go home from the hospital. The location nearest to you is the [facility]. Should you have any trouble or need assistance, please call the cardiac rehab main line in [place] at [phone]. ) Norma Prescott MD [Primary Care Provider] - Erwin Suarez MD [Active] - 7 Days Disposition: HOME Quality - Care Measures CORE MEASURES:: AMI - Stroke/TIA Specify reason for no DC statin medication: Statins not tolerated
== END 2020-06-15 12:16 | disposition home or self-care (01) | DRG 247 ==
LOC: ERS 16:22 → ERHOLD 22:31 → CCU 06-12 07:03
PROVIDERS: ADMIT Family Medicine; ATTEND Internal Medicine
PROC: 027034Z Dilation of Coronary Artery, One Artery with Drug-eluting Intraluminal Device, Percutaneous Approach (ICD-10-PCS; principal; 2020-06-12)
PROC: 02C03ZZ Extirpation of Matter from Coronary Artery, One Artery, Percutaneous Approach (ICD-10-PCS; 2020-06-12)
PROC: 4A023N7 Measurement of Cardiac Sampling and Pressure, Left Heart, Percutaneous Approach (ICD-10-PCS; 2020-06-12)
PROC: B2111ZZ Fluoroscopy of Multiple Coronary Arteries using Low Osmolar Contrast (ICD-10-PCS; 2020-06-12)
PROC: 3E07317 Introduction of Other Thrombolytic into Coronary Artery, Percutaneous Approach (ICD-10-PCS; 2020-06-12)
DX: I21.4 Non-ST elevation (NSTEMI) myocardial infarction (principal); Z68.41 Body mass index [BMI] 40.0-44.9, adult; F41.9 Anxiety disorder, unspecified; I25.10 Atherosclerotic heart disease of native coronary artery without angina pectoris; Z20.828 Contact with and (suspected) exposure to other viral communicable diseases; I10 Essential (primary) hypertension; G89.4 Chronic pain syndrome; E66.01 Morbid (severe) obesity due to excess calories; I08.1 Rheumatic disorders of both mitral and tricuspid valves; E87.6 Hypokalemia; E83.42 Hypomagnesemia; Z79.82 Long term (current) use of aspirin; Z90.49 Acquired absence of other specified parts of digestive tract; Z90.710 Acquired absence of both cervix and uterus; Z98.1 Arthrodesis status; Z88.8 Allergy status to other drugs, medicaments and biological substances; Z91.013 Allergy to seafood; Z88.5 Allergy status to narcotic agent; Z86.69 Personal history of other diseases of the nervous system and sense organs
CPT/HCPCS: 36415; 51701; 71045; 76942; 80048; 80053; 80061; 80076; 81025; 82553; 83735; 83880; 84100; 84484; 85025; 85347; 85379; 87635; 92928; 92973; 92977; 93005; 93010; 93306; 93458; 93798; 96365; 96372; 96375; 96376; C1757; C1874; C9600; J1200; J1644; J1650; J1885; J2060; J2270; J2405; J2550; J2930; J3246; J3475; J7512; Q0163; Q0169; Q9967; S0028; U0003

== ENCOUNTER 2021-11-18 11:51 | Emergency (ER) | payer BC ==
[2021-11-18] MEDS ORDERED: Ondansetron PF 4 MG/2 ML Vial ONE (13:10)
[2021-11-18 13:17] LABS: #Basophils 0.1 thou/uL (0.0-0.2); #Eosinphils 0.1 thou/uL (0.0-0.7); #Lymphocytes 3.9 thou/uL (1.20-3.40); #Monocytes 0.6 thou/uL (0.11-0.59); #Neutrophils 4.4 thou/uL (1.40-6.50); %Basophils 1.3 % (0.0-1.0); %Eosinophils 0.6 % (0.0-10.0); %Lymphocytes 42.7 % (21.0-51.0); %Monocytes 6.6 % (0.0-10.0); %Neutrophils 48.7 % (42.0-75.0); Hemoglobin 12.2 g/dL (12.0-16.0); Mean Corpuscular HGB CONC 31.7 g/dL (32.0-36.0); Mean Corpuscular Hemoglobin 27.7 pg (27.0-31.0); Mean Corpuscular Volume 87.5 fL (78.0-98.0); Mean Platelet Volume 6.8 fL (7.4-10.4); Platelet Count 489 thou/uL (130-400); RBC Distribution Width 15.1 % (11.5-14.5); Red Blood Cell (RBC) Count 4.38 mill/uL (4.20-5.40); White Blood Cell (WBC) Count 9.1 thou/uL (4.8-10.8)
[2021-11-18 13:21] LABS: BHCG - Serum Negative (NEGATIVE); Pregs Control Background? CLEAR/WHITE (CLR/WHITE); Pregs Control Bar Appear? YES (CONTROL BAR)
[2021-11-18 13:39] LABS: ALT (SGPT) 24 U/L (8-55); AST (SGOT) 28 U/L (5-34); Albumin 4.6 g/dL (3.5-5.0); Alkaline Phosphatase 72 U/L (40-110); Anion Gap 18 mmol/L (10-20); BUN (Urea Nitrogen) 10 mg/dL (7.0-18.7); Bilirubin, Total 0.3 mg/dL (0.2-1.2); Calc. Creatinine Clearance 0 mL/min (70-130); Calcium 9.4 mg/dL (7.8-10.44); Carbon Dioxide 19 mmol/L (22-29); Chloride 104 mmol/L (98-107); Globulin 3.4 g/dL (2.4-3.5); Glucose 104 mg/dL (70-105); Lipase 8 U/L (8-78); Magnesium 2.1 mg/dL (1.6-2.6); Potassium 3.9 mmol/L (3.5-5.1); Sodium 137 mmol/L (136-145)
[2021-11-18] MEDS ORDERED: Promethazine HCl 12.5 MG, Admixture Fee 1 EACH in Sodium Chloride 0.9% 50 ML IVPB SCH (14:00)
[2021-11-18 14:33] LABS: Bilirubin Negative (Negative); Blood, Urine Negative (Negative); Clarity Clear (Clear); Glucose, Urine (Dipstick) Normal (Negative); Ketone, Urine 20 mg/dL (Negative); Leukocyte Negative Leu/uL (Negative); Nitrite Negative (Negative); Protein, Urine (Dipstick) Negative (Neg-Trace); Specific Gravity, Urine 1.021 (1.002-1.036); Urobilinogen Normal mg/dL (Less than 2)
[2021-11-18] MEDS ORDERED: Ketamine 50 MG/ML (10ML VIAL) ONE (14:45)
[2021-11-18 16:18] LABS: Troponin I Less than 0.010 ng/mL (< 0.028)
== END 2021-11-18 16:50 | disposition home or self-care (01) ==
LOC: ERS 11:51
DX: M54.6 Pain in thoracic spine (principal); R07.9 Chest pain, unspecified; I10 Essential (primary) hypertension; G43.909 Migraine, unspecified, not intractable, without status migrainosus; I25.2 Old myocardial infarction; E11.9 Type 2 diabetes mellitus without complications; Z79.84 Long term (current) use of oral hypoglycemic drugs; Z79.899 Other long term (current) drug therapy
CPT/HCPCS: 36415; 71045; 71275; 80053; 81003; 83690; 83735; 84484; 84703; 85025; 93005; 96365; 96375; J2405; J2550

== ENCOUNTER 2021-11-25 16:22 | Outpatient (CLI) | payer BC ==
[2021-11-25 17:03] LABS: #Monocytes 0.5 10x3/uL (0.0-1.1); #Neutrophils 6.9 10x3/uL (1.5-8.4); %Basophils 0.3 % (0.0-2.0); %Eosinophils 0.3 % (0.0-6.0); %Lymphocytes 37.3 % (18.0-47.0); %Monocytes 4.4 % (0.0-10.0); %Neutrophils 57.4 % (40.0-75.0); Mean Platelet Volume 9.6 fl (7.4-10.4); Platelet Count 543 10x3/uL (150-450); RBC Distribution Width 16.5 % (11.5-14.5); Red Blood Cell (RBC) Count 4.45 10x6/uL (3.90-5.03); White Blood Cell (WBC) Count 11.9 10x3/uL (3.5-10.5)
[2021-11-25 17:31] LABS: ALT (SGPT) 28 U/L (8-55); AST (SGOT) 23 U/L (5-34); Albumin 4.6 g/dL (3.5-5.0); Alkaline Phosphatase 71 U/L (40-110); Anion Gap 18 mmol/L (10-20); BUN (Urea Nitrogen) 13 mg/dL (7.0-18.7); Bilirubin, Direct 0.2 mg/dL (0.1-0.3); Bilirubin, Total 0.3 mg/dL (0.2-1.2); Calc. Creatinine Clearance 0 mL/min (70-130); Calcium 9.6 mg/dL (7.8-10.44); Carbon Dioxide 20 mmol/L (22-29); Chloride 103 mmol/L (98-107); Globulin 3.1 g/dL (2.4-3.5); Glucose 100 mg/dL (70-105); Potassium 4.3 mmol/L (3.5-5.1); Protein, Total 7.7 g/dL (6.0-8.3); Sodium 137 mmol/L (136-145)
[2021-11-26 00:46] LABS: SARS-CoV-2 PCR by NAA Not Detected (NotDetected)
== END 2021-11-25 16:23 | disposition home or self-care (01) ==
LOC: LABBT 16:22
PROVIDERS: ATTEND Surgery
DX: Z01.812 Encounter for preprocedural laboratory examination (principal); K80.20 Calculus of gallbladder without cholecystitis without obstruction; Z20.822 Contact with and (suspected) exposure to COVID-19
CPT/HCPCS: 80053; 80076; 85025; U0003; U0005

== ENCOUNTER 2021-11-29 09:38 | Day surgery (SDC) | payer BC ==
[2021-11-26 09:33] VITALS: BMI 34.2
[2021-11-29] MEDS ORDERED: Midazolam HCl 2 mg/2 ml Vial ONE ×2 (11:02→12:54)
[2021-11-29] MEDS ORDERED: Scopolamine 1.5 mg/72 hour Patch ONE (11:03)
[2021-11-29] MEDS ORDERED: Bupivacaine 0.25% 10 ML VIAL ONE (12:47)
[2021-11-29] MEDS ORDERED: EPINEPHrine 1 MG/ML AMP ONE (12:47)
[2021-11-29] MEDS ORDERED: Ketamine 50 MG/ML (10ML VIAL) ONE (12:55)
[2021-11-29] MEDS ORDERED: Famotidine/PF 20 mg/2ml Vial ONE (12:55)
[2021-11-29] MEDS ORDERED: fentaNYL Citrate/PF 100 MCG/2 ML SYRINGE ONE (12:55)
[2021-11-29] MEDS ORDERED: SUGAMMADEX SODIUM 200 MG/2 ML VIAL ONE (12:59)
[2021-11-29] MEDS ORDERED: cefOXitin 2 GM VIAL ONE (13:08)
[2021-11-29] MEDS ORDERED: diphenhydrAMINE 50 MG/ML VIAL ONE (13:18)
[2021-11-29] MEDS ORDERED: Lidocaine 1% PF 5 ML VIAL ONE (13:18)
[2021-11-29] MEDS ORDERED: Metoclopramide HCl 10 MG/2 ML VIAL ONE (13:18)
[2021-11-29] MEDS ORDERED: PROPOFOL 200 MG/20 ML VIAL ONE (13:18)
[2021-11-29] MEDS ORDERED: PHENYLEPHRINE-NS 100 MCG/ML 10 ML SYRINGE ONE (13:18)
[2021-11-29] MEDS ORDERED: Rocuronium Bromide 10 MG/ML (10ML VIAL) ONE (13:18)
[2021-11-29] MEDS ORDERED: Fentanyl 250 MCG/5 ML VIAL ONE (14:32)
[2021-11-29] MEDS ORDERED: Promethazine HCl 25 MG/ML VIAL ONE (14:49)
== END 2021-11-29 17:26 | disposition home or self-care (01) ==
LOC: SDC 09:38
PROVIDERS: ATTEND Surgery
PROC: 0FT44ZZ Resection of Gallbladder, Percutaneous Endoscopic Approach (ICD-10-PCS; principal; 2021-11-29)
DX: K80.10 Calculus of gallbladder with chronic cholecystitis without obstruction (principal); K21.9 Gastro-esophageal reflux disease without esophagitis; E28.2 Polycystic ovarian syndrome; I10 Essential (primary) hypertension; E78.00 Pure hypercholesterolemia, unspecified; E66.01 Morbid (severe) obesity due to excess calories; Z68.34 Body mass index [BMI] 34.0-34.9, adult; Z79.52 Long term (current) use of systemic steroids; Z79.82 Long term (current) use of aspirin; Z79.84 Long term (current) use of oral hypoglycemic drugs; Z79.899 Other long term (current) drug therapy; Z88.5 Allergy status to narcotic agent; Z88.8 Allergy status to other drugs, medicaments and biological substances; Z91.013 Allergy to seafood; Z95.5 Presence of coronary angioplasty implant and graft; Z98.1 Arthrodesis status
CPT/HCPCS: 88304; C1713; J0171; J0694; J1200; J2250; J2550; J2704; J2765; J3010; S0020; S0028

== ENCOUNTER 2022-02-04 09:06 | Inpatient (IN) | payer BC ==
[2022-02-04 09:41] LABS: Hemoglobin 11.9 g/dL (12.0-16.0); Mean Corpuscular HGB CONC 32.4 g/dL (32.0-36.0); Mean Corpuscular Hemoglobin 28.8 pg (27.0-31.0); Mean Platelet Volume 7.2 fL (7.4-10.4); Platelet Count 487 thou/uL (130-400); Red Blood Cell (RBC) Count 4.11 mill/uL (4.20-5.40); White Blood Cell (WBC) Count 13.9 thou/uL (4.8-10.8)
[2022-02-04 09:52] LABS: Anion Gap 16 mmol/L (10-20); BUN (Urea Nitrogen) 15 mg/dL (7.0-18.7); Carbon Dioxide 26 mmol/L (22-29); Chloride 103 mmol/L (98-107); Potassium 4.3 mmol/L (3.5-5.1); Sodium 141 mmol/L (136-145)
[2022-02-04 09:53] LABS: ALT (SGPT) 16 U/L (8-55); AST (SGOT) 17 U/L (5-34); Albumin 4.3 g/dL (3.5-5.0); Alkaline Phosphatase 67 U/L (40-110); Bilirubin, Total 0.3 mg/dL (0.2-1.2); Calc. Creatinine Clearance 0 mL/min (70-130); Calcium 9.8 mg/dL (7.8-10.44); Estimated GFR 111; Globulin 3.5 g/dL (2.4-3.5); Glucose 103 mg/dL (70-105); Lipase 15 U/L (8-78); Protein, Total 7.8 g/dL (6.0-8.3)
[2022-02-04 09:59] LABS: Band 4 % (5-11); Eosinophils 2 % (0-10); Lymphocytes 52 % (21-51); MDiff Complete? YES; Monocytes 10 % (0-10); Neutrophil 27 % (42-75); Platelet Morphology Comment Appears Increased; RBC Morphology Normal; Reactive Lymphocytes 6 % (0-10)
[2022-02-04 11:13] LABS: BHCG - Serum Negative (NEGATIVE); Pregs Control Background? CLEAR/WHITE (CLR/WHITE); Pregs Control Bar Appear? YES (CONTROL BAR)
[2022-02-04] MEDS ORDERED: diphenhydrAMINE 50 MG/ML VIAL ONE ×2 (11:37→13:49)
[2022-02-04] MEDS ORDERED: Morphine 4 MG/ML VIAL ONE ×2 (11:37→13:48)
[2022-02-04] MEDS ORDERED: Piperacillin/Tazobactam 3.375 GM VIAL ONE (13:47)
[2022-02-04] MEDS ORDERED: Vancomycin 1 GM/200 ML BAG ONE (15:09)
[2022-02-04] MEDS ORDERED: Iopamidol-370 76% 500 ML 1 ML ONE (15:24)
[2022-02-04 15:50] LABS: Bilirubin Negative (Negative); Blood, Urine Negative (Negative); Clarity Clear (Clear); Glucose, Urine (Dipstick) Normal (Negative); Ketone, Urine Negative (Negative); Leukocyte Negative Leu/uL (Negative); Nitrite Negative (Negative); Protein, Urine (Dipstick) Negative (Neg-Trace); Urobilinogen Normal mg/dL (Less than 2); pH, Urine 5.5 (5.0-9.0)
[2022-02-04 15:53] LABS: Specific Gravity, Urine 1.044 (1.002-1.036)
[2022-02-04] MEDS ORDERED: HYDROcodone/Acetaminophen 5/325 mg Tablet ONE (18:40)
[2022-02-04 21:28] VITALS: BMI 35.6
[2022-02-04] MEDS ORDERED: Fentanyl 100 MCG/2 ML VIAL SLOW IVP PRN (21:36)
[2022-02-04] MEDS ORDERED: HYDROcodone/Acetaminophen 10/325 mg Tablet PO PRN (21:37)
[2022-02-04] MEDS ORDERED: Nitroglycerin 0.4 MG TAB (25 Tab Bottle) SL PRN (21:47)
[2022-02-04] MEDS ORDERED: Promethazine 25 MG TAB PO PRN (21:47)
[2022-02-04] MEDS: Sodium Chloride 0.9% 1,000 ML IV SCH (21:54)
[2022-02-04] MEDS ORDERED: Famotidine/PF 20 mg/2ml Vial SLOW IVP SCH (22:00)
[2022-02-04] MEDS: ACETAMINOPHEN PO SCH (22:04)
[2022-02-04] MEDS: BUTALBITAL PO SCH (22:04)
[2022-02-04] MEDS: CARISOPRODOL 350 MG PO SCH (22:05)
[2022-02-04] MEDS ORDERED: Diazepam 5 MG TAB PO SCH (22:30)
[2022-02-04] MEDS ORDERED: LACTINEX 1 TAB PO SCH (23:31)
[2022-02-04] MEDS ORDERED: Dextrose 50% Abboject 50 ML SYRINGE SLOW IVP PRN (23:54)
[2022-02-04] MEDS ORDERED: Dextrose 5% in Water 1,000 ML IV PRN (23:54)
[2022-02-04] MEDS ORDERED: HumaLOG 300 UNITS/3 ML VIAL SC PRN ×2 (23:54)
[2022-02-05] MEDS ORDERED: Floranex 1 GM Packet PO SCH (01:15)
[2022-02-05] MEDS: CARISOPRODOL 350 MG PO SCH ×3 (05:33→22:41)
[2022-02-05 05:45] LABS: Hemoglobin 10.7 g/dL (12.0-16.0); Mean Corpuscular HGB CONC 32.2 g/dL (32.0-36.0); Mean Corpuscular Hemoglobin 28.6 pg (27.0-31.0); Mean Corpuscular Volume 88.9 fL (78.0-98.0); Mean Platelet Volume 7.1 fL (7.4-10.4); Platelet Count 412 thou/uL (130-400); RBC Distribution Width 14.1 % (11.5-14.5); Red Blood Cell (RBC) Count 3.75 mill/uL (4.20-5.40); White Blood Cell (WBC) Count 9.4 thou/uL (4.8-10.8)
[2022-02-05 05:50] LABS: Band 3 % (5-11); Eosinophils 1 % (0-10); Lymphocytes 55 % (21-51); MDiff Complete? YES; Monocytes 9 % (0-10); Neutrophil 32 % (42-75)
[2022-02-05 05:55] LABS: ALT (SGPT) 19 U/L (8-55); AST (SGOT) 18 U/L (5-34); Albumin 3.7 g/dL (3.5-5.0); Alkaline Phosphatase 61 U/L (40-110); Anion Gap 12 mmol/L (10-20); BUN (Urea Nitrogen) 11 mg/dL (7.0-18.7); Bilirubin, Total 0.3 mg/dL (0.2-1.2); Calc. Creatinine Clearance 170 mL/min (70-130); Calcium 8.5 mg/dL (7.8-10.44); Carbon Dioxide 24 mmol/L (22-29); Chloride 108 mmol/L (98-107); Estimated GFR 115; Globulin 2.8 g/dL (2.4-3.5); Glucose 90 mg/dL (70-105); Potassium 3.9 mmol/L (3.5-5.1); Protein, Total 6.5 g/dL (6.0-8.3); Sodium 140 mmol/L (136-145)
[2022-02-05] MEDS: ACETAMINOPHEN PO SCH ×4 (08:07→20:35)
[2022-02-05] MEDS: BUTALBITAL PO SCH ×4 (08:07→20:35)
[2022-02-05] MEDS: Pantoprazole 40 MG VIAL IVP SCH (08:07)
[2022-02-05] MEDS: Diazepam 5 MG TAB PO SCH ×2 (08:08→20:35)
[2022-02-05] MEDS ORDERED: diphenhydrAMINE 10 MG in Sodium Chloride 0.9% 50 ML IVPB PRN (12:57)
[2022-02-05] MEDS: Sodium Chloride 0.9% 1,000 ML IV SCH (13:56)
[2022-02-05] MEDS: diphenhydrAMINE 50 MG/ML VIAL IVP PRN ×2 (14:30→20:35)
[2022-02-05] MEDS: Loperamide HCl 1 MG/7.5 ML UDCUP PO PRN (16:11)
[2022-02-05 20:17] LABS: Campy jejuni + coli by PCR Negative (Negative); STEC Shiga Toxin 1+2 Negative (Negative); Salmonella spp. by PCR Negative (Negative); Shigella spp + EIEC by PCR Negative (Negative)
[2022-02-05] MEDS: Enoxaparin Sodium 40 MG/0.4 ML SYRINGE SC SCH ×2 (20:35→21:14)
[2022-02-06] MEDS: Sodium Chloride 0.9% 1,000 ML IV SCH ×2 (02:55→11:40)
[2022-02-06] MEDS: diphenhydrAMINE 50 MG/ML VIAL IVP PRN ×3 (03:00→20:22)
[2022-02-06] MEDS: CARISOPRODOL 350 MG PO SCH ×3 (06:07→21:56)
[2022-02-06] MEDS: Diazepam 5 MG TAB PO SCH ×2 (08:36→20:21)
[2022-02-06] MEDS: Pantoprazole 40 MG VIAL IVP SCH (08:36)
[2022-02-06] MEDS: ACETAMINOPHEN PO SCH ×3 (09:09→20:22)
[2022-02-06] MEDS: BUTALBITAL PO SCH ×3 (09:09→20:22)
[2022-02-06] MEDS: Loperamide HCl 1 MG/7.5 ML UDCUP PO PRN (14:45)
[2022-02-06] MEDS: Enoxaparin Sodium 40 MG/0.4 ML SYRINGE SC SCH (20:22)
[2022-02-07] MEDS: Sodium Chloride 0.9% 1,000 ML IV SCH ×2 (02:53→10:57)
[2022-02-07] MEDS: diphenhydrAMINE 50 MG/ML VIAL IVP PRN (04:02)
[2022-02-07] MEDS: CARISOPRODOL 350 MG PO SCH ×2 (06:07→14:29)
[2022-02-07] MEDS: ACETAMINOPHEN PO SCH ×2 (09:10→14:28)
[2022-02-07] MEDS: BUTALBITAL PO SCH ×2 (09:10→14:28)
[2022-02-07] MEDS ORDERED: Promethazine HCl 25 MG in Sodium Chloride 0.9% 50 ML IVPB PRN (09:28)
[2022-02-07] MEDS: Loperamide HCl 1 MG/7.5 ML UDCUP PO PRN (10:32)
[2022-02-07] MEDS ORDERED: Morphine 2 MG/ML VIAL SLOW IVP PRN (12:37)
[2022-02-07] MEDS: Diazepam 5 MG TAB PO SCH (14:16)
[2022-02-07 16:49] VITALS: BP 121/83; TEMP 97.8
== END 2022-02-07 18:22 | disposition home or self-care (01) | DRG 607 ==
LOC: ERS 09:06 → ERHOLD 14:02 → T4-B 21:10
PROVIDERS: ADMIT Internal Medicine; ATTEND Internal Medicine
DX: L43.9 Lichen planus, unspecified (principal); M35.1 Other overlap syndromes; K52.1 Toxic gastroenteritis and colitis; G95.20 Unspecified cord compression; Z20.822 Contact with and (suspected) exposure to COVID-19; I10 Essential (primary) hypertension; G43.909 Migraine, unspecified, not intractable, without status migrainosus; F41.9 Anxiety disorder, unspecified; G24.3 Spasmodic torticollis; M26.609 Unspecified temporomandibular joint disorder, unspecified side; F41.0 Panic disorder [episodic paroxysmal anxiety]; T36.8X5A Adverse effect of other systemic antibiotics, initial encounter; E66.9 Obesity, unspecified; Z90.49 Acquired absence of other specified parts of digestive tract; Z90.710 Acquired absence of both cervix and uterus; Z88.8 Allergy status to other drugs, medicaments and biological substances; Z88.5 Allergy status to narcotic agent; Z91.013 Allergy to seafood; Z79.899 Other long term (current) drug therapy; Z79.82 Long term (current) use of aspirin; Z79.84 Long term (current) use of oral hypoglycemic drugs; Z79.52 Long term (current) use of systemic steroids; I25.2 Old myocardial infarction; Z98.890 Other specified postprocedural states; Z95.5 Presence of coronary angioplasty implant and graft; Z81.1 Family history of alcohol abuse and dependence; Z83.2 Family history of diseases of the blood and blood-forming organs and certain disorders involving the immune mechanism; Z80.7 Family history of other malignant neoplasms of lymphoid, hematopoietic and related tissues; Z83.79 Family history of other diseases of the digestive system; Z68.35 Body mass index [BMI] 35.0-35.9, adult
CPT/HCPCS: 36415; 36416; 74177; 80053; 81003; 83605; 83690; 84703; 85025; 87040; 87086; 87324; 87449; 87505; 96365; 96366; 96367; 96375; 96376; C9113; J1200; J1650; J1815; J2270; J2543; J2550; J3370; J7050; Q0169; Q9967; S0028; U0003; U0005